=== PATIENT | female | born 1955 | race Caucasian/White ===

== ENCOUNTER 2018-03-18 18:45 | Emergency (ER) | payer OTHER ==
[~2018-03-18] VITALS: Ht 157.5 cm; Wt 64.4 kg
[~2018-03-18 18:45] MED LIST: ADVAIR 100-501 EACH INH; ESTRADIOL0.5 MG PO; GLUCOSAMINE-CH1 EA19 PO; PERCOCET 5-3251 EACH PO; ROBAXIN-750750 MG PO; TRAMADOL HCL50 MG PO; VITAMIN B-1250 MC1 PO; VITAMIN D32000 UNI1 PO
[2018-03-18] MEDS ORDERED: ZYRTEC10 M3 PO (18:53)
== END 2018-03-18 20:10 | disposition home or self-care (01) ==
LOC: ED 18:45
DX: J20.9 Acute bronchitis, unspecified (principal); Z87.891 Personal history of nicotine dependence; Z88.0 Allergy status to penicillin; Z79.899 Other long term (current) drug therapy
CPT/HCPCS: 71046; 99283-25

== ENCOUNTER 2021-04-04 08:39 | Day surgery (SDC) | payer OTHER ==
[~2021-04-04] VITALS: Ht 157.5 cm; Wt 72.6 kg
[~2021-04-04 08:39] MED LIST changes: +BAYER CHEWABLE81 MG PO; +BUPROPION HCL100 M1 PO; +CANDICIDAL CAP1 EACH PO; +GABAPENTIN100 MG PO; +LEVALBUTEROL TA15 GM; +SUDOGEST60 MG PO; +ZYRTEC10 M3 PO; +ZYRTEC10 MG PO
--- NOTE | 2021-04-04 10:40 | NUR ---
04/04/21 1040 Sheets,Nirali 1035 PT ARRIVED TO PACU ON 3L VIA MASK, PT WAKES TO TACTILE STIMULI AND DENIES CONCERNS AND EASILY FALLS BACK TO SLEEP. VSS.
--- NOTE | 2021-04-05 07:35 | OR ---
[facility] [address], [place] [address] Signed DATE OF OPERATION: 04/04/2021 SURGEON: Abigail Rutherford MD PREOPERATIVE DIAGNOSES: 1. Father with colonic polyps in his 70s. 2. Two brothers with colonic polyps in their 50s. POSTOPERATIVE DIAGNOSES: 1. A 4 mm polyp at 7 cm. 2. A 12 mm pedunculated polyp at 18 cm/distal rectum (tattoo, snare). 3. A 5 mm polyp at proximal right colon. 4. A 4 mm polyp at 20 cm/distal sigmoid colon. 5. Thhftlg-mx-[id number] sigmoid diverticulosis. PROCEDURES: 1. Colonoscopy. 2. Snare polypectomy. 3. Hot biopsy. 4. Injection of tattoo. ESTIMATED BLOOD LOSS: None. INDICATIONS: Catie is a 65-year-old female, asked to see me for her initial colonoscopy. She talked about her negative Cologuard test in 2017. Her father had colonic polyps in his 70s. At least, two of her brothers have colonic polyps in their 50s. Catie has no lower GI complaints currently. She told me her primary care provider has been urging her for years to undergo colonoscopy. In the office, I gave her a pamphlet on colonoscopy. She understands the nature of the test. There is risk including, but not limited to gas bloating, crampy abdominal pain, bleeding, perforation requiring surgery, and missed diagnosis. We also discussed the need for IV conscious sedation. She had expressed understanding wished to proceed. DESCRIPTION OF PROCEDURE: Catie was taken into our endoscopy suite and placed in the left lateral decubitus position. She was given IV sedation with 6 mg of Versed and 100 mcg of fentanyl to cover the case. A digital rectal exam was performed and this was unremarkable. The adult colonoscope was introduced and advanced around into the cecum under direct Electronically Signed By: ABIGAIL RUTHERFORD MD 04/05/21 0735 PATIENT NAME: CATIE BLOCK OPERATIVE REPORT DATE OF : 57 REPORT #: [id number] PHYSICIAN: ABIGAIL RUTHERFORD MD PCP: SHEA MARSE NP REPORT IS CONFIDENTIAL AND NOT TO BE RELEASED WITHOUT AUTHORIZATION [facility] [address] [place], [place] [address] Signed visualization of camera without difficulty. Her prep was quite good. We could easily see the appendiceal orifice and the ileocecal valve. The scope was then slowly withdrawn. The above-mentioned polyps were removed with the help of hot biopsy forceps. We did use the snare back at 18 cm, which was in the distal sigmoid colon. We then marked that spot with our tattoo. We also noticed diverticula in the sigmoid colon. They were [id number]-[id number] in number, nqbyu-bw-tzwefjwn in size and scattered about. Once done in the rectum, we did take out a tiny hyperplastic appearing polyp. Several other small hyperplastic appearing polyps were simply cauterized. After this, the scope had been retroflexed and really no additional pathology noted above the anal canal. After this, the gas was suctioned out and the colonoscope removed. Catie tolerated the procedure quite well. RECOMMENDATIONS: I will see Catie back in my office in 7 to 14 days to review her results. At the minimum, she will be on 5-year rotation. Abigail Rutherford MD ALB/MODL /[id number] cc: MD Shea Montes De Oca, Nurse Practitioner Patient Chart Copies: ABIGAIL RUTHERFORD MD ~ Electronically Signed By: ABIGAIL RUTHERFORD MD 04/05/21 0735 PATIENT NAME: LEIA BLOCKKadie KUHN OPERATIVE REPORT DATE OF : 57 REPORT #: [id number] PHYSICIAN: ABIGAIL RUTHERFORD MD PCP: SHEA MARES NP REPORT IS CONFIDENTIAL AND NOT TO BE RELEASED WITHOUT AUTHORIZATION
--- NOTE | 2021-04-05 12:37 | PATH ---
[facility] [address] [place], [place] [address] Signed SPECIMEN(S): A POLYP AT 7 CM SPECIMEN(S): B POLYP AT 18 CM SPECIMEN(S): C PROXIMAL ASCENDING/RIGHT COLON POLYP SPECIMEN(S): D POLYP AT 20 CM SPECIMEN SOURCE: A. POLYP AT 7 CM B. POLYP AT 18 CM C. PROXIMAL ASCENDING/RIGHT COLON POLYP D. POLYP AT 20 CM CLINICAL HISTORY: Family history polyps. FINAL PATHOLOGIC DIAGNOSIS: A. Colon, polyp at 7 cm, polypectomy: - Fragments of hyperplastic polyp. - Negative for dysplasia or malignancy. B. Colon, polyp at 18 cm, polypectomy: - Tubular adenoma. - Negative for high-grade dysplasia or malignancy. C. Colon, proximal ascending/right, polyp, polypectomy: - Fragments of tubular adenoma. - Negative for high-grade dysplasia or malignancy. D. Colon, polyp at 20 cm, polypectomy: - Hyperplastic polyp. - Negative for dysplasia or malignancy. NAL:cml:C2NR MICROSCOPIC EXAMINATION: Histologic sections of all submitted blocks are examined by light microscopy. These findings, together with the gross examination, support the pathologic diagnosis. GROSS DESCRIPTION: Four specimens are received in four containers, labeled "SW." A. The specimen, labeled "SW, colon polyp at 7 cm," is received in formalin and consists of three alcala soft tissue fragment(s) that measure 0.1-0.2 cm in greatest dimension. The specimen is entirely submitted in cassette (A1). B. The specimen, labeled "SW, colon polyp at 18 cm," is received in formalin PATIENT NAME: CATIE BLOCK PATHOLOGY DATE OF : 57 REPORT #: [id number] PHYSICIAN: GERSON KENT PCP: KEENAN MARES NP REPORT IS CONFIDENTIAL AND NOT TO BE RELEASED WITHOUT AUTHORIZATION [facility] [address] [place] [id number] Signed and consists of one alcala soft tissue fragment that measures 1.5 cm in greatest dimension. The specimen is inked, sectioned and entirely submitted in cassette (B1). C. The specimen, labeled "SW, proximal right colon polyp," is received in formalin and consists of two alcala soft tissue fragment(s) that measure 0.2 cm in greatest dimension. The specimen is entirely submitted in cassette (C1). D. The specimen, labeled "SW, colon polyp at 20 cm," is received in formalin and consists of one alcala soft tissue fragment that measures 0.1 cm in greatest dimension. The specimen is entirely submitted in cassette (D1). JS (under the direct supervision of a pathologist) The Gross Description was prepared using a voice recognition system. The report was reviewed for accuracy; however, sound-alike word errors, addition and/or deletions may occur. If there is any question about this report, please contact Client Services. PERFORMING LABORATORY: The technical component was performed by [facility], [address] [place] [id number] (Glass Mould Cleaner: Emmy Lemon MD; CLIA# [id number]). [facility], [address] [address] (CLIA# [id number]). Diagnostician: Courtney Mendenhall MD Pathologist Electronically Signed 04/05/2021 Copies: ~ PATIENT NAME: CATIE BLOCK PATHOLOGY DATE OF : 57 REPORT #: [id number] PHYSICIAN: GERSON KENT PCP: KEENAN MARES NP REPORT IS CONFIDENTIAL AND NOT TO BE RELEASED WITHOUT AUTHORIZATION
== END 2021-04-04 11:27 | disposition home or self-care (01) ==
LOC: OPS 08:39 → DS 08:43 → OPS 09:45 → DS 09:45 → OPS 11:27
PROVIDERS: ATTEND Colon & Rectal Surgery
PROC: 0DBK8ZZ Excision of Ascending Colon, Via Natural or Artificial Opening Endoscopic (ICD-10-PCS; 2021-04-04)
PROC: 3E0H8KZ Introduction of Other Diagnostic Substance into Lower GI, Via Natural or Artificial Opening Endoscopic (ICD-10-PCS; 2021-04-04)
PROC: 0DBN8ZZ Excision of Sigmoid Colon, Via Natural or Artificial Opening Endoscopic (ICD-10-PCS; principal; 2021-04-04 09:45)
DX: D12.2 Benign neoplasm of ascending colon (principal); K63.5 Polyp of colon; K57.30 Diverticulosis of large intestine without perforation or abscess without bleeding; J45.909 Unspecified asthma, uncomplicated; Z83.71 Family history of colonic polyps; Z87.891 Personal history of nicotine dependence
CPT/HCPCS: J2250; J3010

== ENCOUNTER 2024-06-24 19:35 | Emergency (ER) | payer OTHER, MEDICARE ==
[~2024-06-24] VITALS: Ht 157.5 cm; Wt 73.2 kg
[2024-06-25] MEDS ORDERED: SULFAMETHOXAZO1 EAC1 (00:35)
[2024-06-25] MEDS ORDERED: METRONIDAZOLE500 MG PO (00:35)
[2024-06-25] MEDS ORDERED: levoFLOXacin 750 MG TAB PO ONE (01:30)
[2024-06-25] MEDS ORDERED: TRIMETHOPRIM/SULFAMETHOXAZOLE 1 EA TAB PO ONE (01:45)
[2024-06-25] MEDS ORDERED: clindamycin HCL 300 MG CAP PO ONE (01:45)
[2024-06-25 01:50] LABS: BASOPHILS 0.8 % (0-2); EOSINOPHILS 6.8 % (0-6); HEMATOCRIT 41.3 % (35.0-50.0); HEMOGLOBIN 14.4 g/dL (12.0-18.0); LYMPHOCYTES 27.6 % (24-44); MCH 30.9 (27-36); MCHC 34.8 g/dl (30-36); MCV 88.8 fl (81-99); MONOCYTES 12.1 % (0-12); NEUTROPHILS 52.7 % (39-80); PLATELET COUNT 288 K/uL (140-440); RBC 4.66 M/ul (4.3-5.7); RDW 13.6 (10.5-15.0)
[2024-06-25] MEDS ORDERED: CLEOCIN HCL300 MG PO (02:11)
[2024-06-25 02:26] LABS: ALBUMIN 3.3 g/dL (3.4-5.0); ALBUMIN/GLOBULIN RATIO 0.87 (1.1-2.4); ANION GAP 13.7 (7-21); BILIRUBIN, TOTAL 0.4 mg/dL (0.2-1.0); BUN/CREATININE RATIO 13.33 (6.0-28.6); CALCIUM 8.2 mg/dL (8.5-10.1); CREATININE, SERUM 0.9 mg/dL (0.55-1.02); POTASSIUM 4.7 mmol/L (3.5-5.1); PROTEIN, TOTAL 7.1 g/dL (6.4-8.2)
[2024-06-25 02:52] VITALS: BP 113/52
== END 2024-06-25 02:54 | disposition home or self-care (01) ==
LOC: ED 19:35
PROVIDERS: Internal Medicine
DX: S61.451A Open bite of right hand, initial encounter (principal); W54.0XXA Bitten by dog, initial encounter; Z88.1 Allergy status to other antibiotic agents; Z79.899 Other long term (current) drug therapy; Z87.891 Personal history of nicotine dependence
CPT/HCPCS: 36415; 73130; 80053; 85025; 86140; 99283; A9270